=== PATIENT | male | born 1970 | race Caucasian/White ===

== ENCOUNTER 2018-04-20 10:40 | Outpatient (REF) | payer BC, SELFPAY ==
[2018-04-20 21:20] LABS: Abs Immature Grans 0.02 k/cumm (0.0-0.09); Absolute Basophil Count 0.03 k/cumm (0.0-0.2); Absolute Eosinophil Count 0.24 k/cumm (0.0-0.7); Absolute Monocyte Count 0.47 k/cumm (0.11-0.7); Absolute Neutrophil Count 5.63 k/cumm (1.2-6.7); Basophils % 0.4; Eosinophils % 3.2; HCT 46.5 % (40.0-50.0); HGB 15.8 g/dL (13.5-17.5); Immature Grans % 0.3; Lymphocytes % 14.7; Mean Corpuscular Hemoglobin 30.3 pg (27.0-33.0); Mean Corpuscular Volume 89.3 fL (80-95); Mean Platelet Volume 11.4 fL (8.0-11.0); Monocytes % 6.3; Neutrophils % 75.1; Platelet Count 211 x1000/uL (130-400); RBC 5.21 m/cumm (4.50-6.00); RBC Distribution Width 13.3 % (11.8-14.1); White Blood Cell Count 7.49 k/cumm (4.4-10.8)
[2018-04-20 21:28] LABS: ALT 27 U/L (12-78); AST 13 U/L (15-37); Albumin 3.9 g/dL (3.4-5.0); Alkaline Phosphatase 102 U/L (46-116); Anion Gap 12.1 mmol/L (3-11); BUN 15 mg/dL (7-18); Bilirubin, Total 0.6 mg/dL (0.2-1.0); CO2 22.9 mmol/L (21.0-32.0); CREATININE 1.18 mg/dL (0.70-1.30); Calcium 8.8 mg/dL (8.5-10.1); Chloride 106 mmol/L (98-107); Glucose 91 mg/dL (70-100); Potassium 4.2 mmol/L (3.5-5.1); Sodium 141 mmol/L (136-145); Total Protein 7.2 g/dL (6.4-8.2)
== END 2018-04-20 11:00 ==
LOC: NCHCN 10:40
PROVIDERS: PCP Internal Medicine; Visit Provider Registered Nurse
DX: R11.2 Nausea with vomiting, unspecified (principal); R05 Cough; I10 Essential (primary) hypertension; R56.9 Unspecified convulsions; J02.9 Acute pharyngitis, unspecified
CPT/HCPCS: 80053; 85025

== ENCOUNTER 2018-08-23 16:41 | Outpatient (REF) | payer BC, SELFPAY ==
[2018-08-23 22:12] LABS: Lipase 80 U/L (73-393)
[2018-08-25 17:11] LABS: Tissue Transglutaminase Ab IgA 1.3 U/mL
== END 2018-08-23 17:01 ==
LOC: NCHCN 16:41
PROVIDERS: PCP Internal Medicine; Visit Provider Internal Medicine
DX: R10.11 Right upper quadrant pain (principal); R19.7 Diarrhea, unspecified
CPT/HCPCS: 83690; 83516

== ENCOUNTER 2018-08-25 09:11 | Outpatient (REF) | payer BC, SELFPAY ==
[2018-08-27 11:06] LABS: Campylobacter PCR SEE COMMENTS; Salmonella PCR SEE COMMENTS; Shiga Toxin PCR SEE COMMENTS; Shigella/Enteroinvasive Ecoli SEE COMMENTS
== END 2018-08-25 09:31 ==
LOC: NCHCN 09:11
PROVIDERS: PCP Internal Medicine; Visit Provider Internal Medicine
DX: R10.11 Right upper quadrant pain (principal); R19.7 Diarrhea, unspecified
CPT/HCPCS: 87505; 87230; 87324